=== PATIENT | female | born 2000 | race Caucasian/White ===

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

== ENCOUNTER 2022-05-24 12:57 | Inpatient (IN) ==
[2022-05-25 08:50] LABS: HDL Cholesterol 51.5 mg/dL
[2022-05-26] MEDS: CMC: FluvoxaMINE 50 mg TAB (NF) PO SCH (09:45)
[2022-05-27] MEDS: CMC: FluvoxaMINE 50 mg TAB (NF) PO SCH (09:22)
[2022-05-28] MEDS: CMC: FluvoxaMINE 50 mg TAB (NF) PO SCH (10:07)
[2022-05-28] MEDS ORDERED: Norgestimate-Eth Estradiol(NF) TAB PO SCH (14:00)
[2022-05-28] MEDS ORDERED: NORGESTIMATE ETH ESTRADIOL PO SCH (21:00)
[2022-05-29 09:23] VITALS: BP 102/73
[2022-05-29] MEDS: CMC: FluvoxaMINE 50 mg TAB (NF) PO SCH (09:39)
== END 2022-05-29 12:19 | disposition home or self-care (01) | DRG 751 ==
LOC: BSU 12:57
PROVIDERS: ADMIT Psychiatry & Neurology Psychiatry; ATTEND Psychiatry & Neurology Psychiatry